=== PATIENT | male | born 1960 | race Caucasian/White ===

== ENCOUNTER → 2016-09-19 | Outpatient (CLI) | payer OTHER ==
--- NOTE | ~2016-09-19 | CR63 ---
[facility] A Service of [facility] & [facility] RADIOLOGY TEXT RESULTS PATIENT: GONZALO EWING LOCATION: [facility] : 64 UNIT #: [id number] AGE: [address]: Houston Washington MD SEX: M ORDER DR: [id number] [facility] [address] [place], [place] [address] [id number] O MR#: [id number] Acc #: [id number] NAME: GONZALO EWING : 1960 SEX: M STUDY DATE/TIME: 09/19/2016 14:24 UNIT: [facility] ROOM: STUDY DESCRIPTION: CR Chest 2 View Attending Physician: Houston Washington M.D. Referring Physician: Houston Washington M.D. Ordering Physician: Houston Washington M.D. Primary Care Physician: Houston Washington M.D. MEDICAL IMAGING REPORT This report is preliminary unless electronic signature is present EXAM Chest PA and lateral 09/19/2016 HISTORY Cough and chest congestion for 2 months, shortness of breath on exertion, asthma. Smoking history for 20 years. FINDINGS PA and lateral examination of the chest upright shows a good expansion of the parenchyma with a normal distribution of the pulmonary vascularity. There is no indication of congestion, effusion, infiltrate, tumor, or nodular density. The pleural reflections and diaphragmatic contours are normal. The cardiac silhouette and mediastinal anatomy is within normal limits. IMPRESSION Normal chest. Dictated by... Wellington Pereira M.D. THIS IS AN ELECTRONICALLY VERIFIED REPORT Wellington Pereira M.D. at 09/20/2016 7:29 AM KRT/to TD: 09/19/2016 18:32 JOB #: [id number] MEDICAL IMAGING REPORT Page 1 of 1 COPY
== END | disposition home or self-care (01) ==
LOC: CRAD 14:11
DX: R05 Cough (principal); F17.200 Nicotine dependence, unspecified, uncomplicated
CPT/HCPCS: 71020

== ENCOUNTER → 2016-10-27 | Outpatient (CLI) | payer OTHER ==
--- NOTE | ~2016-10-27 | CR281 ---
[facility] A Service of [facility] & [facility] RADIOLOGY TEXT RESULTS PATIENT: GONZALO EWING LOCATION: [facility] : 64 UNIT #: [id number] AGE: [address]: Dari Clemens SEX: M ORDER DR: [id number] [facility] [address] [place], [place] [address] [id number] O MR#: [id number] Acc #: [id number] NAME: GONZALO EWING : 1960 SEX: M STUDY DATE/TIME: 10/27/2016 14:28 UNIT: [facility] ROOM: STUDY DESCRIPTION: CR Wrist Min 3 View Lt Attending Physician: Dari Clemens A.P.R.N. Ordering Physician: Dari Clemens A.P.R.N. MEDICAL IMAGING REPORT This report is preliminary unless electronic signature is present EXAM Left wrist Result text under order number ending [id number] Bilateral wrists 10/27/2016. Please see this order for result text. Dictated by... Ric Grove M.D. THIS IS AN ELECTRONICALLY VERIFIED REPORT Ric Grove M.D. at 10/28/2016 4:35 PM Clark TD: 10/27/2016 17:49 JOB #: [id number] MEDICAL IMAGING REPORT Page 1 of 1 COPY
--- NOTE | ~2016-10-27 | CR142 ---
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 [place], [place] [address] [id number] O MR#: [id number] Acc #: [id number] NAME: GONZALO EWING : 1960 SEX: M STUDY DATE/TIME: 10/27/2016 14:27 UNIT: [facility] ROOM: STUDY DESCRIPTION: CR Hand Min 3 Views Rt Attending Physician: Dari Clemens A.P.R.N. Ordering Physician: Dari Clemens A.P.R.N. MEDICAL IMAGING REPORT This report is preliminary unless electronic signature is present EXAM Combined right hand series with left hand series as a bilateral hand series 10/27/2016 HISTORY 56-year-old male with 3-month history of bilateral hand and wrist pain. TECHNIQUE Three-view bilateral hand series FINDINGS Minimal to mild degenerative changes are noted at the first CMC joints and first IP joints bilaterally. No evidence of erosive or destructive arthropathy. Bony mineralization is preserved. Old healed right fifth metacarpal fracture. No acute osseous abnormality is demonstrated. IMPRESSION 1. No acute osseous abnormality involving the right or left hand. 2. Old healed fracture deformity of the right fifth metacarpal. 3. Mild degenerative changes at the first CMC joints and first IP joints bilaterally. Dictated by... Ric Grove M.D. THIS IS AN ELECTRONICALLY VERIFIED REPORT Ric Grove M.D. at 10/28/2016 4:35 PM RGW/to TD: 10/27/2016 17:48 JOB #: [id number] MEDICAL IMAGING REPORT [facility] A Service of [facility] RADIOLOGY TEXT RESULTS PATIENT: GONZALO EWING LOCATION: [facility] : 64 UNIT #: [id number] AGE: [address]: Dari Clemens SEX: M ORDER DR: Page 1 of 1 COPY
--- NOTE | ~2016-10-27 | CR20 ---
[facility] A Service of [facility] & [facility] RADIOLOGY TEXT RESULTS PATIENT: GONZALO EWING LOCATION: [facility] : 64 UNIT #: [id number] AGE: [address]: Dari Clemens SEX: M ORDER DR: [id number] [facility] [address] [place], [place] [address] [id number] O MR#: [id number] Acc #: [id number] NAME: GONZALO EWING : 1960 SEX: M STUDY DATE/TIME: 10/27/2016 14:32 UNIT: [facility] ROOM: STUDY DESCRIPTION: CR Ankle Min 3 Views Lt Attending Physician: Dari Clemens A.P.R.N. Ordering Physician: Dari Clemens A.P.R.N. MEDICAL IMAGING REPORT This report is preliminary unless electronic signature is present EXAM Left ankle series 10/27/2016 HISTORY 56-year-old male complaining of 3-month history of left ankle and foot pain as well as bilateral hand and wrist pain. No reported acute injury. TECHNIQUE Three-view left ankle series. FINDINGS The examination is negative. No evidence of fracture, arthropathy or other osseous abnormality. IMPRESSION Negative left ankle series. Dictated by... Ric Grove M.D. THIS IS AN ELECTRONICALLY VERIFIED REPORT Ric Grove M.D. at 10/28/2016 4:35 PM PATRICIA/cristopher TD: 10/27/2016 17:54 JOB #: [id number] MEDICAL IMAGING REPORT Page 1 of 1 COPY
--- NOTE | ~2016-10-27 | CR126 ---
[facility] A Service of [facility] & [facility] RADIOLOGY TEXT RESULTS PATIENT: GONZALO EWING LOCATION: [facility] : 64 UNIT #: [id number] AGE: [address]: Dari Clemens SEX: M ORDER DR: [id number] [facility] [address] [place], [place] [address] [id number] O MR#: [id number] Acc #: [id number] NAME: GONZALO EWING : 1960 SEX: M STUDY DATE/TIME: 10/27/2016 14:34 UNIT: [facility] ROOM: STUDY DESCRIPTION: CR Foot Complete Min 3 View Lt Attending Physician: Dari Clemens A.P.R.N. Ordering Physician: Dari Clemens A.P.R.N. MEDICAL IMAGING REPORT This report is preliminary unless electronic signature is present EXAM Left foot series 10/27/2016 HISTORY 56-year-old male complaining of 3-month history of left foot and ankle pain, bilateral hand and wrist pain. No reported acute injury. TECHNIQUE Three-view left foot series FINDINGS The examination is negative. No evidence of stress fracture, arthropathy or other osseous abnormality. No significant change since 06/01/2015. IMPRESSION Negative left foot. No change since 06/01/2015. Dictated by... Ric Grove M.D. THIS IS AN ELECTRONICALLY VERIFIED REPORT Ric Grove M.D. at 10/28/2016 4:35 PM RGW/lili TD: 10/27/2016 18:04 JOB #: [id number] MEDICAL IMAGING REPORT Page 1 of 1 COPY
--- NOTE | ~2016-10-27 | CR141 ---
[facility] A Service of [facility] & [facility] RADIOLOGY TEXT RESULTS PATIENT: GONZALO EWING LOCATION: [facility] : 64 UNIT #: [id number] AGE: [address]: Dari Clemens SEX: M ORDER DR: [id number] [facility] [address] [place], [place] [address] [id number] O MR#: [id number] Acc #: [id number] NAME: GONZALO EWING : 1960 SEX: M STUDY DATE/TIME: 10/27/2016 14:27 UNIT: [facility] ROOM: STUDY DESCRIPTION: CR Hand Min 3 Views Lt Attending Physician: Dari Clemens A.P.R.N. Ordering Physician: Dari Clemens A.P.R.N. MEDICAL IMAGING REPORT This report is preliminary unless electronic signature is present EXAM Combined right hand series with left hand series as a bilateral hand series 10/27/2016 FINDINGS Result text under order number [id number]. Please see this order for result text. Dictated by... Ric Grove M.D. THIS IS AN ELECTRONICALLY VERIFIED REPORT Ric Grove M.D. at 10/28/2016 4:35 PM RGW/lili TD: 10/27/2016 17:50 JOB #: [id number] MEDICAL IMAGING REPORT Page 1 of 1 COPY
--- NOTE | ~2016-10-27 | CR282 ---
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 [place], [place] [address] [id number] O MR#: [id number] Acc #: [id number] NAME: GONZALO EWING : 1960 SEX: M STUDY DATE/TIME: 10/27/2016 14:28 UNIT: [facility] ROOM: STUDY DESCRIPTION: CR Wrist Min 3 View Rt Attending Physician: Dari Clemens A.P.R.N. Ordering Physician: Dari Clemens A.P.R.N. MEDICAL IMAGING REPORT This report is preliminary unless electronic signature is present EXAM Bilateral wrist series 10/27/2016 HISTORY 56-year-old male complaining of 3-month history of bilateral hand and wrist pain. TECHNIQUE Three-view wrist series was obtained on the right and left. FINDINGS The examination shows minimal to mild degenerative arthropathy involving the first CMC joint and distal scaphoid articulations bilaterally, greater on the right than on the left. Bilateral wrist series is otherwise negative. No erosive or destructive arthropathic changes. No visible articular chondrocalcinosis. Old healed right fifth metacarpal fracture. 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 Dictated by... Ric Grove M.D. THIS IS AN ELECTRONICALLY VERIFIED REPORT Ric Grove M.D. at 10/28/2016 4:35 PM Clark TD: 10/27/2016 17:48 JOB #: [id number] MEDICAL IMAGING REPORT Page 1 of 1 COPY
== END | disposition home or self-care (01) ==
LOC: CRAD 13:55
DX: M25.572 Pain in left ankle and joints of left foot (principal); M19.032 Primary osteoarthritis, left wrist; M19.031 Primary osteoarthritis, right wrist; M79.642 Pain in left hand; M79.641 Pain in right hand
CPT/HCPCS: 73110; 73130; 73610; 73630

== ENCOUNTER 2016-11-10 15:16 | Emergency (ER) | payer OTHER | END 2016-11-10 16:45 | disposition home or self-care (01) | LOC: CED 15:16 → CFTX 15:16 | DX: S91.332A Puncture wound without foreign body, left foot, initial encounter (principal); F17.210 Nicotine dependence, cigarettes, uncomplicated; I10 Essential (primary) hypertension; Z23 Encounter for immunization; X58.XXXA Exposure to other specified factors, initial encounter; Y92.009 Unspecified place in unspecified non-institutional (private) residence as the place of occurrence of the external cause | CPT/HCPCS: 90471; 90715; 99282 ==

== ENCOUNTER → 2016-11-10 | Outpatient (CLI) | payer OTHER ==
--- NOTE | ~2016-11-10 | CR55 ---
[facility] A Service of [facility] & [facility] RADIOLOGY TEXT RESULTS PATIENT: GONZALO EWING LOCATION: [facility] : 64 UNIT #: [id number] AGE: [address]: LARA GRIFFIN APRN SEX: M ORDER DR: [id number] [facility] [address] [place], [place] [address] [id number] O MR#: [id number] Acc #: [id number] NAME: GONZALO EWING : 1960 SEX: M STUDY DATE/TIME: 11/10/2016 14:51 UNIT: [facility] ROOM: STUDY DESCRIPTION: CR Calcaneus Min 2 Views Lt Attending Physician: Lara Griffin Aprn Referring Physician: Lara Griffin Aprn Ordering Physician: Lara Griffin Aprn Primary Care Physician: Humaira Washington M.D. MEDICAL IMAGING REPORT This report is preliminary unless electronic signature is present EXAM Left calcaneus, 11/10/2016, [facility]. HISTORY 56-year-old male with heel pain. Puncture wound. Patient stepped on a porsche nail. Symptoms today. FINDINGS Axial and true lateral views of the calcaneus demonstrate normal mineralization and intact cortex. There is a tiny plantar calcaneal spur present. Soft tissues appear unremarkable with no retained foreign body. IMPRESSION Negative left calcaneus. No soft tissue foreign body. Dictated by... Zen Walker M.D. THIS IS AN ELECTRONICALLY VERIFIED REPORT Zen Walker M.D. at 11/11/2016 8:08 AM ZAHIRA/wendi TD: 11/10/2016 16:24 JOB #: [id number] MEDICAL IMAGING REPORT Page 1 of 1 COPY
== END | disposition home or self-care (01) ==
LOC: CRAD 14:46
DX: M79.672 Pain in left foot (principal)
CPT/HCPCS: 73650